=== PATIENT | male | born 1960 | race Hispanic/Latino ===

== ENCOUNTER 2025-05-21 19:09 | Observation (INO) | payer SELFPAY ==
[~2025-05-21] VITALS: Ht 170.2 cm; Wt 133.8 kg
[2025-05-21 19:56] LABS: BASOPHILS % 0.8 % (0.0-1.0); EOSINOPHILS % 3.0 % (0.0-6.0); LYMPHOCYTES % 15.6 % (18.0-39.1); MONOCYTES % 12.2 % (4.4-11.3); NEUTROPHILS % 67.8 % (38.7-80.0); RED CELL DISTRIBUTION WIDTH 16.2 % (11.7-14.4)
[2025-05-21 20:08] LABS: INR 1.51
[2025-05-21 20:18] LABS: EST GLOMERULAR FILTRATION RATE 105.0 ML/MIN (>=60)
[2025-05-21] MEDS ORDERED: IOPAMIDOL 370 MG/ML 100 ML INFUS..BTL INJ ONE (20:21)
[2025-05-21] MEDS ORDERED: ACETAMINOPHEN 325 MG TAB PO PRN (22:30)
[2025-05-21] MEDS ORDERED: ONDANSETRON HCL INJ 2MG/ML 2ML 2 MG/ML VIAL IV PRN (22:30)
[2025-05-21] MEDS ORDERED: ONDANSETRON HCL 4 MG ORAL DISINTEGRATING TAB PO PRN (22:30)
[2025-05-21] MEDS ORDERED: FAMOTIDINE 20 MG TAB PO PRN (22:30)
[2025-05-21] MEDS ORDERED: SODIUM CHLORIDE FLUSH 10 ML SYR INJ PRN (22:30)
[2025-05-21] MEDS ORDERED: MELATONIN 5 MG TABLET PO PRN (22:30)
[2025-05-21] MEDS ORDERED: FUROSEMIDE INJ 10 MG/ML 4 ML VIAL ONE (23:58)
[2025-05-22] VITALS (10 sets, daily range): BP systolic 116–147; BP diastolic 67–77; PULSE 80–98; RESP 16–19; TEMP 97.5–98.4; O2SAT 98–100
[2025-05-22] MEDS: FUROSEMIDE INJ 10 MG/ML 4 ML VIAL IV ONE (01:07)
[2025-05-22] MEDS ORDERED: ALBUMIN 25% 12.5GM 50ML 100 ML IV ONE (01:13)
[2025-05-22] MEDS: ALBUMIN 25% 25GM 100ML 0.25 GM/ML BTL IV ONE (01:14)
[2025-05-22 06:29] LABS: BASOPHILS % 0.9 % (0.0-1.0); EOSINOPHILS % 3.7 % (0.0-6.0); LYMPHOCYTES % 18.1 % (18.0-39.1); MONOCYTES % 13.5 % (4.4-11.3); NEUTROPHILS % 63.5 % (38.7-80.0); RED CELL DISTRIBUTION WIDTH 16.2 % (11.7-14.4)
[2025-05-22 07:22] LABS: EST GLOMERULAR FILTRATION RATE 107.0 ML/MIN (>=60)
[2025-05-22] MEDS ORDERED: POTASSIUM CHLORIDE 20 MEQ TAB CR PO ONE (08:15)
[2025-05-22] MEDS ORDERED: LIDOCAINE HCL 1% 30ML-PF VIAL ONE (09:17)
[2025-05-22] MEDS ORDERED: ALBUMIN 25% 12.5GM 50ML 300 ML IV ONE (09:32)
[2025-05-22] MEDS: POTASSIUM CHLORIDE 20 MEQ TAB CR PO ONE (11:47)
[2025-05-22 16:37] LABS: BODY FLUID TYPE PERITONEAL
[2025-05-22 16:38] LABS: BODY FLUID APPEARANCE CLOUDY; BODY FLUID COLOR YELLOW
[2025-05-22 16:39] LABS: WBC,BODY FLUID 205 cells/uL
[2025-05-22] MEDS ORDERED: SPIRONOLACTONE50 MG PO (17:32)
[2025-05-22] MEDS ORDERED: LASIX20 MG PO (17:32)
[2025-05-22] MEDS ORDERED: COREG6.25 MG PO (17:38)
[2025-05-22 21:35] LABS: TOTAL CELLS COUNTED (DIFF) 100
[2025-05-22 21:40] LABS: MONO/MACROPHG,BODY FLUID 23 %; NEUTROPHILS,BODY FLUID 3 %
[2025-05-22 21:41] LABS: LYMPHOCYTES,BODY FLUID 29 %; OTHER CELLS,BODY FLUID 45 %
== END 2025-05-22 19:23 | disposition home or self-care (01) ==
LOC: ER 19:32 → RAD HOLD 22:26 → ERHOLD 22:27 → MED/SURG2 05-22 01:55
PROVIDERS: ADMIT Family Medicine Adult Medicine; ATTEND Family Medicine Adult Medicine
DX: K74.69 Other cirrhosis of liver (principal); K76.6 Portal hypertension; J98.11 Atelectasis; R03.0 Elevated blood-pressure reading, without diagnosis of hypertension; D69.6 Thrombocytopenia, unspecified; D53.9 Nutritional anemia, unspecified
CPT/HCPCS: 36415 ×2; 49083; 71045 ×2; 74177; 74470; 80053 ×2; 82040; 83880; 84157; 85025 ×2; 85610; 85730; 87070; 87205; 88112; 88305; 89051; 93005; 93970; 94799; 99284; G0378 ×2; J1938; J2003; Q9967